=== PATIENT | female | born 1940 | race Caucasian/White ===

== ENCOUNTER 2018-03-10 09:07 | Outpatient (CLI) | payer MEDICARE ==
--- NOTE | 2018-03-10 09:34 | RAD ---
LEFT KNEE FOUR VIEWS: History: Fall one week ago. Post-traumatic pain. Comparison: None. FINDINGS: Joint spaces are preserved. No joint effusion. No malalignment. No fracture. IMPRESSION: No post-traumatic change. POS: [facility]
== END 2018-03-10 09:08 | disposition home or self-care (01) ==
LOC: MADRAD 09:07
PROVIDERS: ATTEND Family Medicine
DX: M25.561 Pain in right knee (principal); W19.XXXA Unspecified fall, initial encounter

== ENCOUNTER 2019-10-17 21:51 | Emergency (ER) | payer MEDICARE ==
[2019-10-17 22:46] LABS: #Basophils 0.1 thou/uL (0.0-0.2); #Eosinphils 0.1 thou/uL (0.0-0.7); #Lymphocytes 2.4 thou/uL (1.20-3.40); #Monocytes 0.7 thou/uL (0.11-0.59); #Neutrophils 4.2 thou/uL (1.40-6.50); %Eosinophils 1.8 % (0.0-10.0); %Lymphocytes 31.6 % (21.0-51.0); %Monocytes 9.8 % (0.0-10.0); %Neutrophils 55.8 % (42.0-75.0); Mean Corpuscular HGB CONC 31.7 g/dL (32.0-36.0); Mean Corpuscular Hemoglobin 30.3 pg (27.0-31.0); Mean Corpuscular Volume 95.8 fL (78.0-98.0); Mean Platelet Volume 8.9 fL (7.4-10.4); Platelet Count 246 thou/uL (130-400); RBC Distribution Width 12.1 % (11.5-14.5); Red Blood Cell (RBC) Count 3.97 mill/uL (4.20-5.40); White Blood Cell (WBC) Count 7.5 thou/uL (4.8-10.8)
[2019-10-17 22:54] LABS: ALT (SGPT) 17 U/L (8-55); AST (SGOT) 15 U/L (5-34); Albumin 3.9 g/dL (3.4-4.8); Alkaline Phosphatase 59 U/L (40-110); Anion Gap 14 mmol/L (10-20); BUN (Urea Nitrogen) 26 mg/dL (9.8-20.1); Bilirubin, Total 0.3 mg/dL (0.2-1.2); Calc. Creatinine Clearance 0 mL/min (70-130); Calcium 8.9 mg/dL (7.8-10.44); Carbon Dioxide 27 mmol/L (23-31); Chloride 107 mmol/L (98-107); Globulin 2.5 g/dL (2.4-3.5); Glucose 122 mg/dL (83-110); Potassium 4.2 mmol/L (3.5-5.1); Protein, Total 6.4 g/dL (6.0-8.3); Sodium 144 mmol/L (136-145)
== END 2019-10-17 23:10 | disposition home or self-care (01) ==
LOC: MADERS 21:51
DX: I10 Essential (primary) hypertension (principal); I48.91 Unspecified atrial fibrillation; Z79.899 Other long term (current) drug therapy
CPT/HCPCS: 36415; 80053; 83735; 83880; 84443; 84484; 85025; 93005

== ENCOUNTER 2020-02-16 07:57 | Outpatient (CLI) | payer MEDICARE ==
--- NOTE | 2020-02-16 08:34 | RAD ---
LUMBAR SPINE 3 VIEWS: DATE: 02/16/2020. COMPARISON: None. HISTORY: Chronic pain. FINDINGS: The frontal examination demonstrates S-shaped scoliosis of the lumbar spine. There is prominent mult ilevel facet hypertrophy, most prominent at the L4-5 and L5-S1 level. Here is 8 mm of retrolisthesis at L3-4. There is disk space narrowing with degenerative end plate ch effie and anterior osteophyte formation at L1-2, L2-3, and L3-4. There is atherosclerotic calcificati on of the abdominal aorta. No acute osseous abnormality. IMPRESSION: Prominent multilevel lumbar spine degenerative change. No acute osseous abnormality. POS: [facility]
== END 2020-02-16 07:58 | disposition home or self-care (01) ==
LOC: MADLAB 07:57
PROVIDERS: ATTEND Surgery
DX: M47.26 Other spondylosis with radiculopathy, lumbar region (principal)
CPT/HCPCS: 72100

== ENCOUNTER 2021-03-02 07:39 | Outpatient (CLI) | payer MEDICARE ==
[2021-03-02 08:47] LABS: White Blood Cell (WBC) Count 8.9 thou/uL (4.8-10.8)
== END 2021-03-02 07:40 | disposition home or self-care (01) ==
LOC: MADEKG 07:39
DX: M54.17 Radiculopathy, lumbosacral region (principal)
CPT/HCPCS: 36415; 85048; 93005; 93010

== ENCOUNTER 2021-09-27 15:55 | Outpatient (CLI) | payer MEDICARE ==
[2021-09-27 16:44] LABS: Bilirubin Negative (Negative); Blood, Urine Negative (Negative); Clarity Clear (Clear); Glucose, Urine (Dipstick) Negative (Negative); Ketone, Urine Negative (Negative); Leukocyte Small (Negative); Nitrite Negative (Negative); Protein, Urine (Dipstick) Negative (Neg-Trace); Specific Gravity, Urine 1.015 (1.005-1.030); Urobilinogen 0.2 mg/dL (Less than 2)
[2021-09-27 16:56] LABS: Bacteria/HPF Rare-Few HPF (None Seen); RBC/HPF 0-3 HPF (0-3); WBC/HPF 0-3 HPF (0-3)
== END 2021-09-27 15:56 | disposition home or self-care (01) ==
LOC: MADRAD 15:55
PROVIDERS: ATTEND Family Medicine
DX: R35.0 Frequency of micturition (principal)
CPT/HCPCS: 81001; 87086

== ENCOUNTER 2022-01-09 09:13 | Outpatient (CLI) | payer OTHER, MEDICARE | END 2022-01-09 09:14 | disposition home or self-care (01) | LOC: MADULT 09:13 | PROVIDERS: ATTEND Family Medicine | DX: N31.9 Neuromuscular dysfunction of bladder, unspecified (principal); R32 Unspecified urinary incontinence; R35.1 Nocturia; E78.2 Mixed hyperlipidemia; E55.9 Vitamin D deficiency, unspecified; N28.1 Cyst of kidney, acquired | CPT/HCPCS: 76770 ==

== ENCOUNTER 2022-07-03 09:39 | Outpatient (CLI) | payer OTHER | END 2022-07-03 09:40 | disposition home or self-care (01) | LOC: MADRAD 09:39 | PROVIDERS: ATTEND Family Medicine | DX: S50.01XA Contusion of right elbow, initial encounter (principal); S40.021A Contusion of right upper arm, initial encounter; W18.30XA Fall on same level, unspecified, initial encounter; S52.021A Displaced fracture of olecranon process without intraarticular extension of right ulna, initial encounter for closed fracture; R07.81 Pleurodynia ==

== ENCOUNTER 2023-03-15 09:00 | Emergency (ER) | payer OTHER ==
[2023-03-15] MEDS ORDERED: Lorazepam 1 MG TAB ONE (09:54)
== END 2023-03-15 11:30 | disposition home or self-care (01) ==
LOC: MADERS 09:00
DX: U07.1 COVID-19 (principal); I48.91 Unspecified atrial fibrillation; E78.5 Hyperlipidemia, unspecified; Z79.82 Long term (current) use of aspirin; Z79.899 Other long term (current) drug therapy
CPT/HCPCS: 99283

== ENCOUNTER 2023-03-17 08:53 | Emergency (ER) | payer OTHER ==
[2023-03-17] MEDS ORDERED: Sodium Chloride 0.9% 1,000 ML ONE (09:36)
[2023-03-17 10:17] LABS: Bilirubin Negative (Negative); Blood, Urine Negative (Negative); Clarity Clear (Clear); Glucose, Urine (Dipstick) Negative (Negative); Ketone, Urine Negative (Negative); Leukocyte Negative (Negative); Nitrite Negative (Negative); Protein, Urine (Dipstick) Negative (Neg-Trace); Specific Gravity, Urine 1.015 (1.005-1.030)
[2023-03-17 10:18] LABS: Bacteria/HPF Rare-Few HPF (None Seen); CAUTI Indications for Culture Dysuria,urgency,freq; RBC/HPF 0-3 HPF (0-3); Squamous Epithelial 0-3 HPF (0-3); WBC/HPF 0-3 HPF (0-3)
[2023-03-17 10:21] LABS: Urine Culture Reflex No No
[2023-03-17 10:34] LABS: ALT (SGPT) 35 U/L (8-55); AST (SGOT) 26 U/L (5-34); Albumin 4.1 g/dL (3.4-4.8); Alkaline Phosphatase 71 U/L (40-110); Anion Gap 15 mmol/L (10-20); BUN (Urea Nitrogen) 12 mg/dL (9.8-20.1); Bilirubin, Total 0.6 mg/dL (0.2-1.2); Calc. Creatinine Clearance 0 mL/min (70-130); Calcium 8.6 mg/dL (7.8-10.44); Carbon Dioxide 20 mmol/L (23-31); Chloride 105 mmol/L (98-107); Estimated GFR 73; Globulin 2.2 g/dL (2.4-3.5); Glucose 113 mg/dL (83-110); Hemoglobin 13.2 g/dL (12.0-16.0); Mean Corpuscular HGB CONC 32.9 g/dL (32.0-36.0); Mean Corpuscular Hemoglobin 30.3 pg (27.0-31.0); Mean Corpuscular Volume 92.4 fl (78.0-98.0); Platelet Count 213 10x3/uL (130-400); Potassium 3.6 mmol/L (3.5-5.1); Protein, Total 6.3 g/dL (5.8-8.1); RBC Distribution Width 13.1 % (11.5-14.5); Red Blood Cell (RBC) Count 4.33 mill/uL (4.20-5.40); Sodium 136 mmol/L (136-145); White Blood Cell (WBC) Count 5.2 10x3/uL (4.8-10.8)
[2023-03-17 10:40] LABS: Eosinophils 1 % (0-10); Lymphocytes 33 % (21-51); MDiff Complete? YES; Manual Diff?? YES; Monocytes 7 % (0-10); Neutrophil 59 % (42-75); RBC Morph Comment Within Normal Limits
[2023-03-17 10:41] LABS: Platelet Adequacy Comment Appears Adequate
== END 2023-03-17 11:52 | disposition home or self-care (01) ==
LOC: MADERS 08:53
DX: U07.1 COVID-19 (principal); E86.0 Dehydration; I25.10 Atherosclerotic heart disease of native coronary artery without angina pectoris; E78.5 Hyperlipidemia, unspecified; Z79.899 Other long term (current) drug therapy; Z79.82 Long term (current) use of aspirin
CPT/HCPCS: 71045; 80053; 81001; 83605; 85025; 96360; J7050

== ENCOUNTER 2023-03-20 12:31 | Emergency (ER) | payer OTHER ==
[2023-03-20 13:39] LABS: #Lymphocytes 1.5 thou/uL (1.20-3.40); #Monocytes 0.6 thou/uL (0.11-0.59); #Neutrophils 5.7 thou/uL (1.40-6.50); %Basophils 0.4 % (0.0-1.0); %Eosinophils 0.6 % (0.0-10.0); %Lymphocytes 19.2 % (21.0-51.0); %Monocytes 8.1 % (0.0-10.0); %Neutrophils 71.7 % (42.0-75.0); Hematocrit 40.8 % (36.0-47.0); Hemoglobin 13.1 g/dL (12.0-16.0); Mean Corpuscular Hemoglobin 30.2 pg (27.0-31.0); Mean Corpuscular Volume 94.4 fl (78.0-98.0); Mean Platelet Volume 8.3 fL (7.4-10.4); Platelet Count 274 10x3/uL (130-400); RBC Distribution Width 13.3 % (11.5-14.5); Red Blood Cell (RBC) Count 4.32 mill/uL (4.20-5.40)
[2023-03-20 13:48] LABS: INR-International Normal Ratio 1.1; Prothrombin Time 14.6 sec (12.0-14.7)
[2023-03-20 13:49] LABS: PTT 27.7 sec (22.9-36.1)
[2023-03-20 13:53] LABS: ALT (SGPT) 25 U/L (8-55); AST (SGOT) 18 U/L (5-34); Albumin 4.3 g/dL (3.4-4.8); Alkaline Phosphatase 62 U/L (40-110); Anion Gap 12 mmol/L (10-20); BUN (Urea Nitrogen) 13 mg/dL (9.8-20.1); Bilirubin, Total 0.7 mg/dL (0.2-1.2); Calc. Creatinine Clearance 0 mL/min (70-130); Calcium 9.4 mg/dL (7.8-10.44); Carbon Dioxide 24 mmol/L (23-31); Chloride 108 mmol/L (98-107); Estimated GFR 75; Globulin 2.4 g/dL (2.4-3.5); Glucose 90 mg/dL (83-110); Potassium 3.9 mmol/L (3.5-5.1); Protein, Total 6.7 g/dL (5.8-8.1); Sodium 140 mmol/L (136-145)
== END 2023-03-20 16:15 | disposition short-term general hospital (02) ==
LOC: MADERS 12:31
DX: S06.5XAA Traumatic subdural hemorrhage with loss of consciousness status unknown, initial encounter (principal); I25.10 Atherosclerotic heart disease of native coronary artery without angina pectoris; I48.91 Unspecified atrial fibrillation; E78.5 Hyperlipidemia, unspecified; Z79.899 Other long term (current) drug therapy; Z79.82 Long term (current) use of aspirin; Z79.01 Long term (current) use of anticoagulants; W01.10XA Fall on same level from slipping, tripping and stumbling with subsequent striking against unspecified object, initial encounter
CPT/HCPCS: 36415; 70450; 71045; 80053; 83605; 85025; 85610; 85730

== ENCOUNTER 2023-03-25 12:01 | Inpatient (IN) | payer OTHER ==
[2023-03-25] MEDS: Gabapentin 300 MG CAP PO SCH (21:43)
[2023-03-26 05:32] LABS: #Eosinphils 0.1 thou/uL (0.0-0.7); #Lymphocytes 2.1 thou/uL (1.20-3.40); #Monocytes 0.9 thou/uL (0.11-0.59); #Neutrophils 4.9 thou/uL (1.40-6.50); %Basophils 0.6 % (0.0-1.0); %Eosinophils 0.9 % (0.0-10.0); %Lymphocytes 26.1 % (21.0-51.0); %Monocytes 10.7 % (0.0-10.0); %Neutrophils 61.7 % (42.0-75.0); Hemoglobin 11.9 g/dL (12.0-16.0); Mean Corpuscular Hemoglobin 30.9 pg (27.0-31.0); Mean Corpuscular Volume 93.5 fl (78.0-98.0); Mean Platelet Volume 8.2 fL (7.4-10.4); Platelet Count 224 10x3/uL (130-400); RBC Distribution Width 13.3 % (11.5-14.5); Red Blood Cell (RBC) Count 3.85 mill/uL (4.20-5.40); White Blood Cell (WBC) Count 7.9 10x3/uL (4.8-10.8)
[2023-03-26 05:45] LABS: ALT (SGPT) 23 U/L (8-55); AST (SGOT) 11 U/L (5-34); Albumin 3.3 g/dL (3.4-4.8); Alkaline Phosphatase 49 U/L (40-110); Anion Gap 14 mmol/L (10-20); BUN (Urea Nitrogen) 24 mg/dL (9.8-20.1); Bilirubin, Total 0.6 mg/dL (0.2-1.2); Calc. Creatinine Clearance 48 mL/min (70-130); Calcium 8.5 mg/dL (7.8-10.44); Carbon Dioxide 24 mmol/L (23-31); Chloride 105 mmol/L (98-107); Estimated GFR 72; Globulin 2.3 g/dL (2.4-3.5); Glucose 106 mg/dL (83-110); Potassium 4.6 mmol/L (3.5-5.1); Protein, Total 5.6 g/dL (5.8-8.1); Sodium 138 mmol/L (136-145)
[2023-03-26] MEDS ORDERED: traMADol HCl 50 MG TAB PO PRN (08:22)
[2023-03-26] MEDS: Gabapentin 300 MG CAP PO SCH ×2 (08:44→20:46)
[2023-03-26] MEDS: Vit A,C & E/Lutein/Minerals Tablet PO SCH (09:13)
[2023-03-26] MEDS: Cholecalciferol (Vitamin D3) 5,000 UNITS CAPSULE PO SCH (09:13)
[2023-03-26] MEDS: Anastrozole 1 MG TAB PO SCH (09:13)
[2023-03-26] MEDS: Atorvastatin Calcium 40 MG TAB PO SCH (09:13)
[2023-03-26] MEDS ORDERED: Scopolamine 1 mg/72 hour Patch TOP SCH (18:30)
[2023-03-27] MEDS: Anastrozole 1 MG TAB PO SCH (08:35)
[2023-03-27] MEDS: Vit A,C & E/Lutein/Minerals Tablet PO SCH (08:45)
[2023-03-27] MEDS: Gabapentin 300 MG CAP PO SCH ×2 (08:45→20:40)
[2023-03-27] MEDS: Atorvastatin Calcium 40 MG TAB PO SCH (08:45)
[2023-03-27] MEDS: Cholecalciferol (Vitamin D3) 5,000 UNITS CAPSULE PO SCH (08:45)
[2023-03-27] MEDS: Calcium Carbonate 500 MG ChewTAB PO PRN (16:24)
[2023-03-28] MEDS: Anastrozole 1 MG TAB PO SCH (08:44)
[2023-03-28] MEDS: Vit A,C & E/Lutein/Minerals Tablet PO SCH (08:44)
[2023-03-28] MEDS: Cholecalciferol (Vitamin D3) 5,000 UNITS CAPSULE PO SCH (08:44)
[2023-03-28] MEDS: Gabapentin 300 MG CAP PO SCH ×2 (08:44→20:07)
[2023-03-28] MEDS: Atorvastatin Calcium 40 MG TAB PO SCH (08:44)
[2023-03-28] MEDS: Calcium Carbonate 500 MG ChewTAB PO PRN (19:03)
[2023-03-29] MEDS: Gabapentin 300 MG CAP PO SCH ×2 (09:30→20:19)
[2023-03-29] MEDS: Anastrozole 1 MG TAB PO SCH (09:31)
[2023-03-29] MEDS: Cholecalciferol (Vitamin D3) 5,000 UNITS CAPSULE PO SCH (09:31)
[2023-03-29] MEDS: Atorvastatin Calcium 40 MG TAB PO SCH (09:31)
[2023-03-29] MEDS: Scopolamine 1 mg/72 hour Patch TOP SCH (09:31)
[2023-03-29] MEDS: Vit A,C & E/Lutein/Minerals Tablet PO SCH (09:31)
[2023-03-29] MEDS: Polyethylene Glycol 3350 17 GM Packet PO PRN (10:57)
[2023-03-29] MEDS: Calcium Carbonate 500 MG ChewTAB PO PRN (17:54)
[2023-03-30] MEDS: Gabapentin 300 MG CAP PO SCH ×2 (08:26→20:10)
[2023-03-30] MEDS: Anastrozole 1 MG TAB PO SCH (08:26)
[2023-03-30] MEDS: Cholecalciferol (Vitamin D3) 5,000 UNITS CAPSULE PO SCH (08:27)
[2023-03-30] MEDS: Vit A,C & E/Lutein/Minerals Tablet PO SCH (08:27)
[2023-03-30] MEDS: Atorvastatin Calcium 40 MG TAB PO SCH (08:27)
[2023-03-30] MEDS: Polyethylene Glycol 3350 17 GM Packet PO PRN (16:39)
[2023-03-30] MEDS ORDERED: OIL TOP PRN (19:30)
[2023-03-31] MEDS: Vit A,C & E/Lutein/Minerals Tablet PO SCH (08:35)
[2023-03-31] MEDS: Gabapentin 300 MG CAP PO SCH ×2 (08:35→20:16)
[2023-03-31] MEDS: Cholecalciferol (Vitamin D3) 5,000 UNITS CAPSULE PO SCH (08:35)
[2023-03-31] MEDS: Anastrozole 1 MG TAB PO SCH (08:35)
[2023-03-31] MEDS: Atorvastatin Calcium 40 MG TAB PO SCH (08:35)
[2023-03-31] MEDS: Polyethylene Glycol 3350 17 GM Packet PO PRN (17:14)
[2023-04-01] MEDS: Atorvastatin Calcium 40 MG TAB PO SCH (08:53)
[2023-04-01] MEDS: Cholecalciferol (Vitamin D3) 5,000 UNITS CAPSULE PO SCH (08:53)
[2023-04-01] MEDS: Scopolamine 1 mg/72 hour Patch TOP SCH (08:53)
[2023-04-01] MEDS: Anastrozole 1 MG TAB PO SCH (08:53)
[2023-04-01] MEDS: Gabapentin 300 MG CAP PO SCH ×2 (08:53→20:03)
[2023-04-01] MEDS: Vit A,C & E/Lutein/Minerals Tablet PO SCH (08:53)
[2023-04-02] MEDS: Vit A,C & E/Lutein/Minerals Tablet PO SCH (08:01)
[2023-04-02] MEDS: Anastrozole 1 MG TAB PO SCH (08:01)
[2023-04-02] MEDS: Gabapentin 300 MG CAP PO SCH ×2 (08:02→20:15)
[2023-04-02] MEDS: Cholecalciferol (Vitamin D3) 5,000 UNITS CAPSULE PO SCH (08:02)
[2023-04-02] MEDS: Atorvastatin Calcium 40 MG TAB PO SCH (08:02)
[2023-04-02] MEDS: Polyethylene Glycol 3350 17 GM Packet PO PRN (08:04)
[2023-04-02 13:22] VITALS: BMI 21.9
[2023-04-03] MEDS: Atorvastatin Calcium 40 MG TAB PO SCH (08:00)
[2023-04-03] MEDS: Vit A,C & E/Lutein/Minerals Tablet PO SCH (08:00)
[2023-04-03] MEDS: Anastrozole 1 MG TAB PO SCH (08:00)
[2023-04-03] MEDS: Gabapentin 300 MG CAP PO SCH ×2 (08:00→20:48)
[2023-04-03] MEDS: Cholecalciferol (Vitamin D3) 5,000 UNITS CAPSULE PO SCH (08:01)
[2023-04-03] MEDS: Acetaminophen 325 MG TAB PO PRN ×3 (09:07→20:49)
[2023-04-03] MEDS ORDERED: OIL TOP PRN (13:37)
[2023-04-03] MEDS: Famotidine 20 MG TAB PO SCH (20:48)
[2023-04-03] MEDS: Topiramate 25 MG TAB PO SCH (20:48)
[2023-04-04] MEDS: Scopolamine 1 mg/72 hour Patch TOP SCH (08:19)
[2023-04-04] MEDS: Gabapentin 300 MG CAP PO SCH ×2 (08:20→20:46)
[2023-04-04] MEDS: Anastrozole 1 MG TAB PO SCH (08:20)
[2023-04-04] MEDS: Cholecalciferol (Vitamin D3) 5,000 UNITS CAPSULE PO SCH (08:20)
[2023-04-04] MEDS: Vit A,C & E/Lutein/Minerals Tablet PO SCH (08:20)
[2023-04-04] MEDS: Famotidine 20 MG TAB PO SCH ×2 (08:20→20:46)
[2023-04-04] MEDS: Acetaminophen 325 MG TAB PO PRN (08:21)
[2023-04-04] MEDS: Atorvastatin Calcium 40 MG TAB PO SCH (08:22)
[2023-04-04] MEDS: Topiramate 25 MG TAB PO SCH (20:46)
[2023-04-05] MEDS: Gabapentin 300 MG CAP PO SCH ×2 (08:21→20:25)
[2023-04-05] MEDS: Atorvastatin Calcium 40 MG TAB PO SCH (08:22)
[2023-04-05] MEDS: Famotidine 20 MG TAB PO SCH ×2 (08:22→20:25)
[2023-04-05] MEDS: Anastrozole 1 MG TAB PO SCH (08:22)
[2023-04-05] MEDS: Vit A,C & E/Lutein/Minerals Tablet PO SCH (08:22)
[2023-04-05] MEDS: Cholecalciferol (Vitamin D3) 5,000 UNITS CAPSULE PO SCH (08:22)
[2023-04-05] MEDS: Topiramate 25 MG TAB PO SCH (20:25)
[2023-04-06] MEDS: Famotidine 20 MG TAB PO SCH ×2 (08:40→20:14)
[2023-04-06] MEDS: Anastrozole 1 MG TAB PO SCH (08:40)
[2023-04-06] MEDS: Gabapentin 300 MG CAP PO SCH ×2 (08:40→20:14)
[2023-04-06] MEDS: Vit A,C & E/Lutein/Minerals Tablet PO SCH (08:40)
[2023-04-06] MEDS: Atorvastatin Calcium 40 MG TAB PO SCH (08:40)
[2023-04-06] MEDS: Cholecalciferol (Vitamin D3) 5,000 UNITS CAPSULE PO SCH (08:40)
[2023-04-06] MEDS: Polyethylene Glycol 3350 17 GM Packet PO PRN (12:06)
[2023-04-06] MEDS: Calcium Carbonate 500 MG ChewTAB PO PRN (20:14)
[2023-04-06] MEDS: Topiramate 25 MG TAB PO SCH (20:14)
[2023-04-07] MEDS: Gabapentin 300 MG CAP PO SCH (08:18)
[2023-04-07] MEDS: Vit A,C & E/Lutein/Minerals Tablet PO SCH (08:18)
[2023-04-07] MEDS: Anastrozole 1 MG TAB PO SCH (08:18)
[2023-04-07] MEDS: Cholecalciferol (Vitamin D3) 5,000 UNITS CAPSULE PO SCH (08:19)
[2023-04-07] MEDS: Famotidine 20 MG TAB PO SCH (08:19)
[2023-04-07] MEDS: Scopolamine 1 mg/72 hour Patch TOP SCH (08:20)
[2023-04-07] MEDS: Atorvastatin Calcium 40 MG TAB PO SCH (08:21)
[2023-04-07 09:15] VITALS: BP 103/68; TEMP 97.9
== END 2023-04-07 11:25 | disposition home health service (06) | DRG 947 ==
LOC: MADMS 14:41
PROVIDERS: ADMIT Family Medicine; ATTEND Family Medicine
DX: R53.81 Other malaise (principal); S06.5X0A Traumatic subdural hemorrhage without loss of consciousness, initial encounter; I10 Essential (primary) hypertension; I25.10 Atherosclerotic heart disease of native coronary artery without angina pectoris; I48.91 Unspecified atrial fibrillation; Z66 Do not resuscitate; M79.2 Neuralgia and neuritis, unspecified; G43.909 Migraine, unspecified, not intractable, without status migrainosus; Z85.3 Personal history of malignant neoplasm of breast; Z90.49 Acquired absence of other specified parts of digestive tract; Z90.710 Acquired absence of both cervix and uterus; Z98.890 Other specified postprocedural states; Z88.8 Allergy status to other drugs, medicaments and biological substances; Z88.1 Allergy status to other antibiotic agents; Z95.5 Presence of coronary angioplasty implant and graft
CPT/HCPCS: 70450; 80053; 85025

== ENCOUNTER 2023-04-24 12:53 | Outpatient (CLI) | payer OTHER | END 2023-04-24 12:54 | disposition home or self-care (01) | LOC: MADCT 12:53 | PROVIDERS: ATTEND Family Medicine | DX: S06.5X0D Traumatic subdural hemorrhage without loss of consciousness, subsequent encounter (principal); W19.XXXA Unspecified fall, initial encounter | CPT/HCPCS: 70450 ==

== ENCOUNTER 2023-09-23 12:59 | Outpatient (CLI) | payer OTHER | END 2023-09-23 13:00 | disposition home or self-care (01) | LOC: MADRAD 12:59 | PROVIDERS: ATTEND Family Medicine | DX: S00.33XA Contusion of nose, initial encounter (principal) | CPT/HCPCS: 70450; 70486 ==

== ENCOUNTER 2024-01-13 14:31 | Outpatient (CLI) | payer OTHER | END 2024-01-13 14:32 | disposition home or self-care (01) | LOC: MADRAD 14:31 | PROVIDERS: ATTEND Family Medicine | DX: M79.671 Pain in right foot (principal); M79.672 Pain in left foot; M19.071 Primary osteoarthritis, right ankle and foot; M19.072 Primary osteoarthritis, left ankle and foot ==